=== PATIENT | female | born 2000 | race Two or more races ===

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

== ENCOUNTER 2021-10-26 16:43 | Inpatient (IN) | payer OTHER ==
[~2021-10-26] VITALS: Ht 180.3 cm; Wt 77.1 kg
[~2021-10-26 16:43] MED LIST: ADDERALL 30 MG30 MG; ALLEGRA-D 12 H1 EACH PO; DUI500 PO; ORASEP SPRAY30 ML MM
--- NOTE | 2021-10-26 17:42 | NUR ---
PACIENTE ALERTA Y ORIENTADA X3. REFIERE VENIR POR FIEBRE Y DOLOR EN EL CUERPO DESDE HACE CUATRO HALEY. AL MOMENTO PRESENTA 100.1F DE TEMPERATURA Y NO TIENE DOLOR EN EL CUERPO.
--- NOTE | 2021-10-26 18:07 | NUR ---
PACIENTE ALERTA Y ORIENTADA POR ROBIN. SE ORIENTA DE TRATAMIENTO SATHISH ORDEN MEDICA. REFIERE ENTENDER. SE TANNA MUESTRAS CON MEDIDAS ASEPTICAS CORRESPONDIENTTES. EN ESPERA DE RESULTADOS PARA RE EVALUACION MEDICA.
== END 2021-10-30 20:27 | disposition home or self-care (01) | DRG 866 ==
LOC: ER 16:43 → SEC-K 10-27 02:24 → SURH 10-27 02:24 → MEDI 10-27 08:54 → SEC-K 10-27 10:10 → MEDI 10-27 10:11 → SURH 10-27 18:07
PROVIDERS: ADMIT Internal Medicine; ATTEND Internal Medicine
DX: A90 Dengue fever [classical dengue] (principal); M25.50 Pain in unspecified joint; B27.90 Infectious mononucleosis, unspecified without complication; D69.6 Thrombocytopenia, unspecified